=== PATIENT | male | born 1950 | race Caucasian/White ===

== ENCOUNTER → 2016-03-03 | Outpatient (CLI) | payer BC ==
[2016-03-03 18:11] LABS: BLOOD UREA NITROGEN 17 mg/dl (7-18); BUN/CREATININE RATIO 19.1 (10-20); CALCIUM 8.7 mg/dl (8.5-10.1); CARBON DIOXIDE 29 mmol/L (21-32); CHLORIDE 102 mmol/L (98-107); PHOSPHORUS 3.1 mg/dl (2.5-4.9); POTASSIUM 4.1 mmol/L (3.5-5.1); SODIUM 138 mmol/L (136-145)
[2016-03-03 18:54] LABS: GLUCOSE 156 mg/dl (70-99)
[2016-03-04 06:37] LABS: ESTIMATED AVERAGE GLUCOSE 143 mg/dl; HA1C FLAG Normal (Normal)
== END | disposition home or self-care (01) ==
LOC: C.LABMFLN 11:26
PROVIDERS: ATTEND Family Medicine
DX: R73.03 Prediabetes (principal)

== ENCOUNTER → 2016-07-18 | Outpatient (CLI) | payer BC ==
[2016-07-18 19:07] LABS: LYME DISEASE AB IGG NEG (NEG); LYME DISEASE AB IGM NEG (NEG)
== END | disposition home or self-care (01) ==
LOC: C.LABMFLN 09:05
PROVIDERS: ATTEND Family Medicine
DX: R20.2 Paresthesia of skin (principal)

== ENCOUNTER → 2016-09-07 | Outpatient (CLI) | payer BC | END | disposition home or self-care (01) | LOC: C.LABMFLN 15:46 | PROVIDERS: ATTEND Family Medicine | DX: N40.1 Benign prostatic hyperplasia with lower urinary tract symptoms (principal) ==

== ENCOUNTER → 2017-01-23 | Outpatient (CLI) | payer BC ==
[2017-01-23 19:00] LABS: BLOOD UREA NITROGEN 21 mg/dl (7-18); BUN/CREATININE RATIO 22.5 (10-20); CALCIUM 8.5 mg/dl (8.5-10.1); CARBON DIOXIDE 28 mmol/L (21-32); CHLORIDE 101 mmol/L (98-107); CREATININE 0.95 mg/dl (0.60-1.40); POTASSIUM 4.2 mmol/L (3.5-5.1); SODIUM 135 mmol/L (136-145)
[2017-01-23 19:18] LABS: GLUCOSE 107 mg/dl (70-99)
[2017-01-24 07:58] LABS: ESTIMATED AVERAGE GLUCOSE 120 mg/dl; HA1C FLAG Normal (Normal)
== END | disposition home or self-care (01) ==
LOC: C.LABMFLN 15:42
PROVIDERS: ATTEND Family Medicine
DX: E11.9 Type 2 diabetes mellitus without complications (principal)

== ENCOUNTER → 2017-02-08 | Outpatient (CLI) | payer BC | END | disposition home or self-care (01) | LOC: C.LABMFLN 10:03 | PROVIDERS: ATTEND Family Medicine | DX: R10.9 Unspecified abdominal pain (principal) ==

== ENCOUNTER → 2017-02-13 | Outpatient (CLI) | payer BC ==
--- NOTE | 2017-02-13 08:33 | DIAGNOSTIC IMAGING REPORT ---
ABDOMINAL ULTRASOUND, RIGHT UPPER QUADRANT HISTORY: Liver cyst. COMPARISON: None. FINDINGS: Liver morphology is normal. Hepatic echogenicity is slightly increased. A few hepatic cysts measure up to 1 cm. One cyst contains a thin septation. An additional cyst has low level internal echoes with enhanced through transmission and has benign imaging characteristics There is no biliary ductal dilatation. Common bile duct measures 3 mm in caliber. There are no gallstones. No gallbladder wall thickening is noted. Pancreatic body is normal. The pancreatic head and tail are partially obscured. There is no right hydronephrosis. IMPRESSION: 1. A few small hepatic cysts. 2. No gallstones or biliary ductal dilatation. 3. Suspected mild fatty infiltration of the liver. Electronically signed by: Jayy Davila M.D. 02/13/2017 8:31 AM Dictated Date/Time: 02/13/2017 8:29 AM
== END | disposition home or self-care (01) ==
LOC: C.ULTR 07:47
PROVIDERS: ATTEND Family Medicine
DX: K76.89 Other specified diseases of liver (principal)

== ENCOUNTER → 2017-02-28 | Outpatient (CLI) | payer BC | END | disposition home or self-care (01) | LOC: C.LABMFLN 16:31 | PROVIDERS: ATTEND Urology | DX: N40.1 Benign prostatic hyperplasia with lower urinary tract symptoms (principal); R31.29 Other microscopic hematuria ==

== ENCOUNTER → 2017-09-20 | Outpatient (CLI) | payer BC | END | disposition home or self-care (01) | LOC: C.LABMFLN 15:38 | PROVIDERS: ATTEND Urology | DX: R97.20 Elevated prostate specific antigen [PSA] (principal); N40.1 Benign prostatic hyperplasia with lower urinary tract symptoms ==

== ENCOUNTER 2018-05-17 10:51 | Inpatient (IN) ==
--- NOTE | 2018-05-02 12:42 | PAT Medication Instructions ---
Medication Instructions Date of Service May 02, 2018 Home Medications cyanocobalamin (vitamin B-12) 1,000 mcg PO QAM duloxetine 30 mg PO QAM finasteride 5 mg PO QAM hydrocodone-acetaminophen 1 tab PO BID PRN metformin 500 mg PO BID pregabalin [Lyrica] 200 mg PO BID DO NOT take the morning of surgery cyanocobalamin (vitamin B-12) 1,000 mcg PO QAM finasteride 5 mg PO QAM metformin 500 mg PO BID Take morning of surgery With a small sip of water, OTHERWISE NOTHING TO EAT OR DRINK AFTER MIDNIGHT: duloxetine 30 mg PO QAM hydrocodone-acetaminophen 1 tab PO BID PRN (if needed, may be taken up to four hours before surgery) pregabalin [Lyrica] 200 mg PO BID Take evening before surgery hydrocodone-acetaminophen 1 tab PO BID PRN (if needed) metformin 500 mg PO BID pregabalin [Lyrica] 200 mg PO BID Other Notes If you have any questions please call us at [phone] or [phone] or [phone] or [phone]
--- NOTE | 2018-05-02 13:20 | Anesthesiology Consultation ---
Date of Service May 02, 2018 Assessment & Plan (1) Encounter for pre-operative examination: CHECK BSG STAT AM DOS Chart Review Chart Review: Acceptable Risk for Surgery and Patient seen in Pre Admission Testing Teaching & Discussion Instructed NPO after midnight before surgery, except medications with 15 cc of water. Medication instructions provided according to the PAT guidelines. History Surgery Operation Date: 05/16/18 13:20 Proposed Procedures p Left Reverse Total Shoulder Arthroplasty - Sabas Tidwell DO Height/Weight Height: 5 ft 11 in Weight: 92.4 kg Allergies Allergy/AdvReac Type Severity Reaction Status Date / Time No Known Allergies Allergy Verified 04/29/18 10:02 Medications Home Medications Medication Instructions Recorded Confirmed Last Taken cyanocobalamin (vitamin B-12) 1,000 mcg PO QAM 04/29/18 04/29/18 Unknown [Vitamin B-12] duloxetine 30 mg PO QAM 04/29/18 04/29/18 Unknown finasteride 5 mg PO QAM 04/29/18 04/29/18 Unknown hydrocodone-acetaminophen 1 tab PO BID PRN 04/29/18 04/29/18 Unknown metformin 500 mg PO BID 04/29/18 04/29/18 Unknown pregabalin [Lyrica] 200 mg PO BID 04/29/18 04/29/18 Unknown Past Medical History Medical History Borderline diabetes On Metformin, A1C 6.3% History of peripheral neuropathy Left rotator cuff tear arthropathy Osteoarthritis Past Surgical History Surgical History History of bunionectomy with hammertoe correction History of colonoscopy History of eye surgery S MUSCLE REPAIR History of herniorrhaphy History of neck surgery History of shoulder surgery Rotator cuff repair Past Anesthesia History No Hx of Anesthesia Complications and No Family Hx of Anesthesia Complications History of PONV No Motion Sickness Screening History of Motion Sickness: No Social History Smoking Status: Current every day smoker tobacco type: cigarettes Smoking cigarettes per day: HX OF 1PPD-1.5PPD X50 YEARS AGO Do You Dip or Chew Tobacco: No Hx Alcohol Use: Yes Alcohol type: beer alcohol intake frequency: a few times a week Hx Substance Use: No substance use type: does not use Exercise / Class Metabolic Activity II 4-5 Yardwork/Stairs/Walk up hill Review of Systems Pt denies any recent chest pain, shortness of breath, palpitations, cough, fever or URI. Physical Exam Vital Signs BP: 101/65 P: 107bpm SPO2: 96% RA T: 97.9 F R: 16 ENMT Mouth: + chipped teeth (one chipped bottom front); no dental restorations and no loose teeth Thyromental Distance: < 3.5 Finger Breadths (2.5) Mallampati Class: III Neck + shortened thyromental distance; neck extension not limited Respiratory normal respiratory effort Auscultation: lungs clear to auscultation bilaterally Cardiovascular Rate/Rhythm: regular rhythm and + tachycardic Heart Sounds: + murmur (I/ systolic RSB) Vessels: no carotid bruit Extremities: no edema Testing Electrocardiogram Date: 05/02/18 Findings: + NSR @ (98) Chest X-Ray Date: 05/02/18 1. No acute process within the chest. 2. Mild interstitial thickening which is likely chronic. 3. Questionable 2.7 cm nodular density within the right middle lobe. This is likely due to the overlapping rib. Recommend shallow oblique views of the chest or chest CT for further evaluation. 4. This finding was called/faxed to the referring physician's office following dictation. Laboratory Results 05/02/18 13:36 05/02/18 13:36 Blood Type O Negative 05/02/18 13:36 Antibody Screen NEGATIVE 05/02/18 13:36 PT 9.8 Seconds (9.0-12.0) 05/02/18 13:36 INR 1.0 (0.9-1.1) 05/02/18 13:36 APTT 27.9 Seconds (21.0-31.0) 05/02/18 13:36 Laboratory Tests 03/15/18 16:09 Hemoglobin A1c 6.3 H *surgeon made aware of elevated glucose
--- NOTE | 2018-05-02 13:59 | XRay Report ---
XR chest Pre-admission PA/Lat HISTORY: Preop. COMPARISON: None. FINDINGS: The heart is normal in size. No pleural effusions. No pneumothorax. Mild diffuse interstiti al thickening. This may be chronic. Questionable 2.7 cm nodular density within the right middle lobe. However, this may be due to the overlapping rib. IMPRESSION: 1. No acute process within the chest. 2. Mild interstitial thickening which is likely chronic. 3. Questionable 2.7 cm nodular density within the right middle lobe. This is likely due to the overla pping rib. Recommend shallow oblique views of the chest or chest CT for further evaluation. 4. This finding was called/faxed to the referring physician's office following dictation. Electronically signed by: Raúl Lopez M.D. 05/02/2018 1:58 PM
[2018-05-02 14:00] LABS: Basophils # (auto) 0.02 K/uL (0-0.2); Basophils % (auto) 0.4 %; Eosinophils # (auto) 0.06 K/uL (0-0.5); Eosinophils % (auto) 1.1 %; Hematocrit (blood only) 41.9 % (42-52); Hemoglobin 14.9 g/dL (14.0-18.0); Immature Granulocytes # (auto) 0.01 K/uL (0.00-0.02); Immature Granulocytes % (auto) 0.2 %; Lymphocytes # (auto) 1.69 K/uL (1.2-3.4); Lymphocytes % (auto) 31.2 %; Mean Corpuscular Hgb Conc 35.6 g/dL (32-36); Mean Corpuscular Volume 91.9 fL (80-100); Mean Platelet Volume 10.8 fL (7.4-10.4); Monocytes # (auto) 0.25 K/uL (0.11-0.59); Monocytes % (auto) 4.6 %; Neutrophils # (auto) 3.39 K/uL (1.4-6.5); Neutrophils % (auto) 62.5 %; Platelet Count 141 K/uL (130-400); RDW Coefficient of Variation 12.2 % (11.5-14.5); RDW Standard Deviation 41.1 fL (36.4-46.3); Red Blood Count 4.56 M/uL (4.7-6.1); White Blood Count 5.42 K/uL (4.8-10.8)
[2018-05-02 14:10] LABS: Partial Thromboplastin Time 27.9 Seconds (21.0-31.0); Prothrombin Time 9.8 Seconds (9.0-12.0)
[2018-05-02 14:19] LABS: BUN Creatinine Ratio 19.4 (10-20); Calcium 8.8 mg/dl (8.5-10.1); Creatinine Clr Calc Pharmacy 72.7 ml/min; Est GFR (Non-African American) 66.4; Potassium 4.1 mmol/L (3.5-5.1)
--- NOTE | 2018-05-15 07:33 | History & Physical Report ---
Date of Service May 15, 2018 Assessment & Plan (1) Rotator cuff arthropathy of left shoulder: We will proceed with a left reverse total shoulder arthroplasty. Postoperatively he will be placed in an arm sling and kept overnight at the hospital for postop medical management. He plans to use energy physical therapy upon discharge. 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 He does have a history of a left shoulder rotator cuff repair done over 10 years ago. He has been having no pain in his shoulder until recently. On April 152018 he slipped and fell getting out of his work truck directly onto his left shoulder. He has been unable to elevate his shoulder since. He has severe pain. He did report the incident and has followed up with occupational health. They obtained an MRI of his shoulder which shows a massive retracted rotator cuff tear. I saw him in the office for definitive treatment of his shoulder issues. After extensive discussions including grafting procedures with the shoulder and shoulder replacement surgery, he is elected to proceed with a reverse left shoulder arthroplasty. Allergies Allergy/AdvReac Type Severity Reaction Status Date / Time No Known Allergies Allergy Verified 04/29/18 10:02 Home Medications Home Medications Medication Instructions Recorded Confirmed Type cyanocobalamin (vitamin B-12) 1,000 mcg PO QAM 04/29/18 04/29/18 History [Vitamin B-12] duloxetine 30 mg PO QAM 04/29/18 04/29/18 History finasteride 5 mg PO QAM 04/29/18 04/29/18 History hydrocodone-acetaminophen 1 tab PO BID PRN 04/29/18 04/29/18 History metformin 500 mg PO BID 04/29/18 04/29/18 History pregabalin [Lyrica] 200 mg PO BID 04/29/18 04/29/18 History Past Med/Surg History Medical History Borderline diabetes On Metformin, A1C 6.3% History of peripheral neuropathy Left rotator cuff tear arthropathy Osteoarthritis Surgical History History of bunionectomy with hammertoe correction History of colonoscopy History of eye surgery 1969' MUSCLE REPAIR History of herniorrhaphy History of neck surgery History of shoulder surgery Rotator cuff repair Social History Preferred Language: Swedish Communication Ability: Effective Snuff Container Inspector Required: No Beliefs That Will Affect Care: None Current Living Situation: Spouse Other Information That Helps Us Care for You: No Feels Safe at Home: Yes Safety Concerns: Feels Safe At This Time Smoking Status: Current every day smoker Hx Alcohol Use: Yes Hx Substance Use: No
[~2018-05-17 10:51] MED LIST: ACETAMINOPHEN 500 MG TAB PO SCH; BUPIVACAINE 0.5 % 5 MG/1 ML PF 10ML VIAL ONE; CEFAZOLIN 2000MG 2,000 MG/15 ML SYR IV SCH; FAMOTIDINE 20 MG TAB PO SCH; GABAPENTIN 300 MG PO SCH; LR 15ML/HR IV SCH; LR 60ML/HR IV SCH; ROPIVACAINE 0.5% HCL/PF 150 MG, BUPIVACAINE 0.5% MPF 30 ML, EPINEPHrine 30MG/30ML (OR U... INFIL SCH; TRANEXAMIC ACID 1,000 MG **IV Intra-op IV SCH; TRANEXAMIC ACID 1,000 MG **IV Pre-op IV SCH; [UNRECOGNIZED DRUG - REMARK] SCH
--- NOTE | 2018-05-17 11:38 | History & Physical Bridge Note ---
Date of Service May 17, 2018 History & Physical Bridge Note I have examined the patient, reviewed the History & Physical and in the interval since the performance of the History & Physical I have noted the following changes of clinical significance: no changes noted
[2018-05-17] MEDS ORDERED: fentaNYL citrate 100 MCG/2 ML VIAL ONE ×2 (12:35→15:27)
[2018-05-17] MEDS ORDERED: MIDAZOLAM HCL 1 MG/ML 2ML VIAL ONE (12:36)
[2018-05-17] MEDS ORDERED: ePHEDrine sulfate 50 MG/ML AMP IV PRN (13:34)
[2018-05-17] MEDS ORDERED: fentaNYL citrate 100 MCG/2 ML VIAL IV PRN (13:34)
[2018-05-17] MEDS ORDERED: ONDANSETRON INJ 2 MG/ML 2 ML VIAL IV PRN ×2 (13:34→18:51)
[2018-05-17] MEDS ORDERED: ATROPINE SULFATE 0.1 MG/ML 10ML SYR IV PRN (13:34)
[2018-05-17] MEDS ORDERED: ALBUT/IPRATROP 3MG/0.5MG NEB 3 ML VIAL NEB STA (13:34)
[2018-05-17] MEDS ORDERED: ALBUT/IPRATROP 3MG/0.5MG NEB 3 ML VIAL INH PRN (13:34)
[2018-05-17] MEDS ORDERED: ROPIVACAINE 0.5% HCL/PF 150 MG, BUPIVACAINE 0.5% MPF 30 ML, EPINEPHrine 30MG/30ML (OR U... INFIL SCH (14:30)
[2018-05-17] MEDS ORDERED: ONDANSETRON INJ 2 MG/ML 2 ML VIAL ONE (14:49)
[2018-05-17] MEDS ORDERED: PROPOFOL IV EMULSION 10 MG/ML 20 ML VIAL IV ONE (14:49)
[2018-05-17] MEDS ORDERED: DEXAMETHASONE SOD INJ 4 MG/ML VIAL ONE (14:49)
[2018-05-17] MEDS ORDERED: POVIDONE-IODINE OP SOLN 30 ML BTL ONE (15:12)
[2018-05-17] MEDS ORDERED: ORTHO JOINT ANESTHETIC ONE (15:12)
[2018-05-17] MEDS ORDERED: ROCURONIUM BROMIDE 10 MG/ML 5 ML VIAL ONE (16:24)
[2018-05-17] MEDS ORDERED: NEOSTIGMINE METHYLSULFATE 5 MG/5 ML SYR ONE (16:24)
[2018-05-17] MEDS ORDERED: GLYCOPYRROLATE 0.2 MG/ML VIAL ONE (16:24)
--- NOTE | 2018-05-17 16:51 | Operative Report ---
Post Operative Report Pre & Post Diagnosis Operation Date: 05/17/18 13:30 Pre-Op Diagnosis: LEFT SHOULDER ROTATOR CUFF ARTHROPATHY Post-Op Diagnosis: LEFT SHOULDER ROTATOR CUFF ARTHROPATHY Procedure Operation Date: 05/17/18 13:30 Actual Procedures p Left Reverse Total Shoulder Arthroplasty, uncemented (Left) - Sabas Tidwell DO Surgeon Sabas Tidwell DO [employer] Sabas Hicks PAC Estimated Blood Loss 200 Findings Consistent with Post-Op Diagnosis Specimens Left humeral head Complications none Disposition Disposition: Recovery Room Indications Jayjay is a pleasant 67-year-old male who is been complaining of severe increase in left shoulder pain. MRI and clinical examination was diagnostic for chronic retracted rotator cuff tear of the left shoulder. He elected to proceed with a left reverse shoulder arthroplasty. Description of Procedure Implants used: I used a [employer] Comprehensive reverse total shoulder arthroplasty system with a size 10 press fit mini humeral stem, a standard humeral tray and a standard humeral bearing, a 25 mm mini baseplate with a 6.5 mm central screw and superior and inferior locking screws, and a size 36 mm eccentric glenosphere. The patient arrived at [facility] for the above procedure. There were seen in the preoperative holding area and the operative extremity was identified and signed. They were given a preoperative antibiotic and an interscalene nerve block. They were taken back to the operating room, laid on table in supine position, and put under general anesthesia. They were then put into the beachchair position. The shoulder was then prepped and draped in sterile fashion. A timeout was done and the patient in the operative extremity was properly identified. A deltopectoral approach was used. Dissection was taken down through the fascia and the deltoid was retracted laterally and the conjoined tendon was retracted medially. The anterior shoulder was exposed. The long head of the biceps tendon was chronically torn. The subscapularis was chronically torn. The inferior capsule was released and the humeral head was dislocated. A canal finding reamer was sent down the center of the humeral canal. Sequential reaming up to a size 10 reamer was done. Off that reamer, a proximal humeral resection guide was placed. The proximal humerus was resected at 135 of inclination and 25 of retroversion. Osteophytes were then removed and the glenoid was exposed. Time was spent doing a complete capsular and labral release. The glenoid guide was then placed in the inferior aspect of the glenoid. A 3.2 mm Steinmann pin was then placed into the glenoid vault at 10 of inclination. The glenoid baseplate was then reamed. The final size 25 mm mini baseplate was then impacted in the place. A 6.5 mm central screw was then placed followed by superior and inferior locking screws. A 36 mm eccentric glenoid sphere was then impacted into place. Surrounding soft tissues were then injected with 100 cc an orthopedic pain control cocktail. The proximal humerus was then exposed. Sequential broaching of the humerus up to a size 10 broach was done. Off that broach a standard humeral tray was trialed. The shoulder was then reduced, brought through a full range of motion and felt to be stable. The shoulder was then dislocated and the broach was removed. The final size 10 mini press-fit humeral stem was then impacted into place. A standard humeral bearing was then snapped onto a standard humeral tray and the ring-lock mechanism was engaged. The humeral tray was then impacted onto the humeral stem. The shoulder was once again reduced, brought through a full range of motion and felt to be stable. The subscapularis was chronically torn and unable to be repaired. A dilute betadyne lavage was then done for 3 minutes. The joint was then irrigated with normal saline solution. Hemostasis was obtained. The skin was then closed with 2-0 Vicryl, 3-0V lock suture, and giovanna. A soft dressing and a regular arm sling was placed. The patient was then extubated and transferred to a hospital bed. They were taken to the postanesthesia care unit in stable condition. They tolerated the procedure well. I attest to the content of the Intraoperative Record and any orders documented therein. Any exceptions are noted below.
--- NOTE | 2018-05-17 17:36 | XRay Report ---
XR shoulder RT min 2V routine HISTORY: 67 years-old Male Post shoulder surgery left shoulder total joint arthroplasty. COMPARISON: Left shoulder radiographs 04/23/2017 TECHNIQUE: 2 views of the left shoulder FINDINGS: Reverse total joint arthroplasty about the left shoulder with satisfactory alignment. Expected postsu rgical soft tissue swelling with deep tissue air. Adjacent skin giovanna noted. Degenerative changes o f the left AC joint are unchanged. Cardiomegaly with bibasilar opacities. Calcification of the thorac ic aortic arch. IMPRESSION: Left shoulder total joint arthroplasty demonstrates satisfactory alignment. The above report was generated using voice recognition software. It may contain grammatical, syntax o r spelling errors. Electronically signed by: Luis Nunez M.D. 05/17/2018 5:35 PM
--- NOTE | 2018-05-17 18:09 | Anesthesiology Progress Note ---
Date of Service May 17, 2018 Anesthesia Post Procedure Vital Signs Vital Signs: Temp Pulse Pulse Resp BP Pulse Ox 05/17/18 17:55 72 15 128/78 96 05/17/18 17:45 79 13 125/72 97 05/17/18 17:35 74 12 132/68 98 05/17/18 17:25 71 12 134/67 98 05/17/18 17:18 36.1 C L 69 14 138/55 L 96 05/17/18 13:42 70 16 96 05/17/18 11:46 36.8 C 72 20 142/84 H 94 Pain Intensity Left Shoulder: Pain Intensity: 0 Notes Mental Status: alert / awake / arousable Patient Amnestic to Procedure: Yes Nausea / Vomiting: adequately controlled Pain: adequately controlled Airway Patency, RR, SpO2: stable & adequate BP & HR: stable & adequate Hydration State: stable & adequate Anesthetic Complications: no major complications apparent
[2018-05-17] MEDS ORDERED: HYDROmorphone INJ 0.5 MG/0.5 ML SYR IV PRN (18:51)
[2018-05-17] MEDS ORDERED: NALOXONE HCL 0.4 MG/1 ML VIAL/CARP IV PRN (18:51)
[2018-05-17] MEDS ORDERED: METOCLOPRAMIDE HCL INJ 5 MG/ML 2 ML VIAL IV PRN (18:51)
[2018-05-17] MEDS ORDERED: OXYCODONE HCL IR 5 MG TAB (IMMEDIATE RELEASE) PO PRN (18:51)
[2018-05-17] MEDS ORDERED: MAGNESIUM HYDROXIDE SUSP 30 ML UDC PO PRN (18:51)
[2018-05-17] MEDS ORDERED: BISACODYL 10 MG SUPP PR PRN (18:51)
[2018-05-17] MEDS ORDERED: SODIUM CHLORIDE 0.9% 1000ML 1,000 ML IV SCH (18:51)
[2018-05-17] MEDS ORDERED: PHARMACY GLYCEMIC MGMT CONSULT PRN (19:08)
[2018-05-17] MEDS ORDERED: DEXTROSE 50% 50 ML SYRINGE IV PRN (19:45)
[2018-05-17] MEDS ORDERED: GLUCAGON FOR INJ 1 MG VIAL IM PRN (19:45)
[2018-05-17] MEDS ORDERED: GLUCOSE 40% GEL 15 GM TUBE PO PRN (19:45)
[2018-05-17] MEDS ORDERED: CARBOHYDRATES FOR HYPOGLYCEMIA PO PRN (19:45)
[2018-05-17] MEDS ORDERED: GLUCOSE 10 TABS/TUBE PO PRN (19:45)
[2018-05-17] MEDS: KETOROLAC TROMETHAMINE 15 MG/ML VIAL IV SCH (20:08)
--- NOTE | 2018-05-17 20:52 | Pharmacy Report ---
Glycemic Control Consultation - Date of Service May 17, 2018 - Scope Scope: Glycemic Pharmacist consulted by Dr Tidwell on 05-17-18 for glycemic control and to write orders per [facility] inpatient glycemic control protocol - Objective Weight: 92.6 kg Accuchecks BSG (last 24hrs): 05/17/18 05/17/18 05/17/18 11:39 17:24 20:08 POC Glucose 114 H 142 H 191 H - Recent Pertinent Medications Outpatient Anti-diabetic Regimen: * metformin 500 mg bid * A1c = 6.3 % 03-15-18 Risk Factors for Insulin Resistance: * Steroids: ortho (dex), DXM 4 iv x 1 * Recent Surgery: POD 0 * Diet: T2DM - Assessment & Plan Assessment & Plan: ASSESSMENT: * Patient is a 67 year old male now s/p shoulder arthroplasty. Type 2 diabetic managed only on metformin at home, last A1C of 6.3% indicates good glycemic control at home * Did receive steroids preop/intraop therefore do anticipate steroid induced hyperglycemia postop - therefore will utilize basal/bolus dosing PLAN FOR INPATIENT GLYCEMIC CONTROL: * Pt is maintained on oral antidiabetic agents as an outpatient * Oral agents are not recommended for inpatient use d/t drug interactions, changing PO intake, and difficulty titrating for acute hyper/hypoglycemia. ADA recommends re-initiating outpatient oral agents 1-2 days prior to discharge if/when appropriate if they were held on admission. * Will hold oral agents for admission and utilize SQ basal bolus insulin regimen which is the recommended regimen for inpatient glycemic control. * Will initiate weight based insulin dosing for insulin gracia patient and titrate based on BSG trends. * Basal insulin * Lantus 18 units x 1 (~0.2 units/kg) * Bolus insulin - added overnight checks * NovoLog per scale ACHS or Q6hrs while NPO * Goal Range: Low 120 mg/dL - High 160 mg/dL * Correction Factor: 15 mg/dL/unit * Nutritional / Prandial insulin per carb ratio of 1 unit per 6 grams CHO co nsumed * Please note that the plan above was derived based on current level of insulin resistance and hospital stress. These recommendations are appropriate for inpatient admission only. Plan of care upon discharge will need to be reassessed to avoid potential outpatient hypo/hyperglycemia. Thank you.
[2018-05-17] MEDS ORDERED: SENNA 8.6 MG TAB PO SCH (21:00)
[2018-05-17] MEDS ORDERED: LANTUS PER UNIT CHARGE SQ ONE (21:00)
[2018-05-17] MEDS: ACETAMINOPHEN 500 MG TAB PO SCH (21:50)
[2018-05-17] MEDS: PREGABALIN 100 MG CAP PO SCH (21:50)
[2018-05-17] MEDS: DOCUSATE SODIUM 100 MG CAP PO SCH (21:50)
[2018-05-17] MEDS: INSULIN ASPART 100 UNITS/ML 3 ML PEN SC SCH ×2 (21:57→22:18)
[2018-05-17] MEDS: CEFAZOLIN 2000MG 2,000 MG/15 ML SYR IV SCH (23:14)
[2018-05-18] MEDS: KETOROLAC TROMETHAMINE 15 MG/ML VIAL IV SCH ×2 (02:47→09:50)
[2018-05-18] MEDS: CEFAZOLIN 2000MG 2,000 MG/15 ML SYR IV SCH ×2 (02:47→09:53)
[2018-05-18] MEDS: INSULIN ASPART 100 UNITS/ML 3 ML PEN SC SCH ×3 (04:19→09:12)
[2018-05-18] MEDS: ACETAMINOPHEN 500 MG TAB PO SCH (05:16)
[2018-05-18 06:17] LABS: Hematocrit (blood only) 38.9 % (42-52); Immature Granulocytes # (auto) 0.02 K/uL (0.00-0.02); Immature Granulocytes % (auto) 0.2 %; Lymphocytes # (auto) 0.56 K/uL (1.2-3.4); Lymphocytes % (auto) 5.2 %; Mean Corpuscular Volume 90.9 fL (80-100); Mean Platelet Volume 10.5 fL (7.4-10.4); Monocytes % (auto) 2.8 %; Neutrophils # (auto) 9.94 K/uL (1.4-6.5); Neutrophils % (auto) 91.8 %; Platelet Count 137 K/uL (130-400); RDW Coefficient of Variation 12.4 % (11.5-14.5); RDW Standard Deviation 41.3 fL (36.4-46.3); Red Blood Count 4.28 M/uL (4.7-6.1); White Blood Count 10.82 K/uL (4.8-10.8)
[2018-05-18 06:34] LABS: BUN Creatinine Ratio 22.7 (10-20); Calcium 8.4 mg/dl (8.5-10.1); Creatinine Clr Calc Pharmacy 76.1 ml/min; Est GFR (African American) 81.3; Est GFR (Non-African American) 70.2; Potassium 4.8 mmol/L (3.5-5.1)
[2018-05-18] MEDS ORDERED: FINASTERIDE 5 MG TAB PO SCH (09:00)
[2018-05-18] MEDS ORDERED: LANTUS PER UNIT CHARGE SQ SCH ×2 (09:00→21:00)
[2018-05-18] MEDS ORDERED: MULTIVITAMIN TAB PO SCH (09:00)
[2018-05-18] MEDS ORDERED: DULOXETINE HCL 30 MG CAP PO SCH (09:00)
--- NOTE | 2018-05-18 09:02 | Orthopedic Progress Note ---
Date of Service May 18, 2018 Assessment & Plan (1) Rotator cuff arthropathy of left shoulder: Overall he is doing very well. Is not any pain in the shoulder. He will be seen by physical therapy today for range of motion exercises. We will continue hydrocodone for pain control. I will discharge him home later this morning. I will see him in the office in 2 weeks. Present on Admission?: Yes Subjective Jayjay was seen and examined at bedside this morning. Overall is doing very well. He is having no pain in the shoulder. He is happy with his progress. He has no complaints. Physical Exam Vital Signs (Past 24 Hours): Last Vital Signs Temp 37.2 C 05/18/18 07:13 Pulse 85 05/18/18 07:13 Resp 18 05/18/18 07:13 BP 136/78 05/18/18 07:13 Pulse Ox 91 05/18/18 07:13 Musculoskeletal: On physical examination of his left shoulder, the dressing is clean and dry. He is wearing a sling as instructed. His radial median and ulnar nerves are checked and intact his wrist. His axillary nerve was not checked yet. Results & Data Laboratory Results H & H 05/02/18 05/18/18 Range/Units 13:36 05:53 Hgb 14.9 14.0 (14.0-18.0) g/dL Hct 41.9 L 38.9 L (42-52) % Coagulation 05/02/18 Range/Units 13:36 INR 1.0 (0.9-1.1) Diagnostic Findings Postoperative x-rays of the left shoulder show the prosthesis to be in anatomic alignment without any evidence of fracture dislocation or loosening
--- NOTE | 2018-05-18 09:03 | Discharge Summary ---
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 He does have a history of a left shoulder rotator cuff repair done over 10 years ago. He has been having no pain in his shoulder until recently. On April 152018 he slipped and fell getting out of his work truck directly onto his left shoulder. He has been unable to elevate his shoulder since. He has severe pain. He did report the incident and has followed up with occupational health. They obtained an MRI of his shoulder which shows a massive retracted rotator cuff tear. I saw him in the office for definitive treatment of his shoulder issues. After extensive discussions including grafting procedures with the shoulder and shoulder replacement surgery, he is elected to proceed with a reverse left shoulder arthroplasty. Specialty Data Orthopedic H & H 05/02/18 05/18/18 Range/Units 13:36 05:53 Hgb 14.9 14.0 (14.0-18.0) g/dL Hct 41.9 L 38.9 L (42-52) % Coagulation 05/02/18 Range/Units 13:36 INR 1.0 (0.9-1.1) Discharge Data Consultations 05/17/18 18:51 Consult Case Management - Discharge Planning Routine Procedures Performed Operation Date: 05/17/18 13:30 Actual Procedures p Left Reverse Total Shoulder Arthroplasty, uncemented (Left) - Sabas Tidwell DO Hospital Course (1) Rotator cuff arthropathy of left shoulder: On May 17 2018 can arrived at [facility] and underwent a left reverse shoulder arthroplasty without complication. He had a general anesthetic and a left interscalene nerve block. Postoperatively he was placed in an arm sling and discharged to general orthopedic floors. His hospital course is uneventful. On postop day #1 his H&H was stable and his pain was well controlled. He was able to do range of motion exercises with physical therapy. He was then discharged to home. He will follow-up with orthopedics in 2 weeks. Discharge Instructions Home Medications Medication Instructions Recorded Confirmed cyanocobalamin (vitamin B-12) 1,000 mcg PO QAM 04/29/18 05/17/18 [Vitamin B-12] duloxetine 30 mg PO QAM 04/29/18 05/17/18 finasteride 5 mg PO QAM 04/29/18 05/17/18 metformin 500 mg PO BID 04/29/18 05/17/18 pregabalin [Lyrica] 200 mg PO BID 04/29/18 05/17/18 Previous Rx's Medication Instructions Recorded hydrocodone-acetaminophen 1 tab PO Q6 PRN #40 tab 05/18/18
[2018-05-18] MEDS: DOCUSATE SODIUM 100 MG CAP PO SCH (09:50)
[2018-05-18] MEDS: PREGABALIN 100 MG CAP PO SCH (09:51)
--- NOTE | 2018-05-18 09:55 | Anesthesiology Progress Note ---
Date of Service May 18, 2018 Anesthesia Post Procedure Vital Signs Vital Signs: Temp Pulse Pulse Pulse Resp BP Pulse Ox 05/18/18 07:13 37.2 C 85 18 136/78 91 05/18/18 03:45 36.8 C 102 H 17 121/73 90 05/17/18 22:59 36.5 C 110 H 17 122/75 91 05/17/18 21:21 37.1 C 108 H 18 126/77 93 05/17/18 19:50 36.9 C 99 H 16 122/70 95 05/17/18 19:18 37.0 C 87 16 112/73 96 05/17/18 18:45 36.9 C 87 16 123/76 94 05/17/18 18:25 36.8 C 71 16 125/72 95 05/17/18 18:15 78 16 123/71 94 05/17/18 18:05 86 15 122/70 94 05/17/18 17:55 72 15 128/78 96 05/17/18 17:45 79 13 125/72 97 05/17/18 17:35 74 12 132/68 98 05/17/18 17:25 71 12 134/67 98 05/17/18 17:18 36.1 C L 69 14 138/55 L 96 05/17/18 13:42 70 16 96 05/17/18 11:46 36.8 C 72 20 142/84 H 94 Pain Intensity Left Shoulder: Pain Intensity: 0 Notes Mental Status: alert / awake / arousable and participated in evaluation Patient Amnestic to Procedure: Yes Nausea / Vomiting: adequately controlled Pain: adequately controlled Airway Patency, RR, SpO2: stable & adequate BP & HR: stable & adequate Hydration State: stable & adequate Anesthetic Complications: no major complications apparent and Pt Satisfied with anesthetic care
== END 2018-05-18 10:31 | disposition home or self-care (01) | DRG 483 ==
LOC: ASU 10:51 → 3E 16:54